=== PATIENT | female | born 1950 | race Caucasian/White ===

== ENCOUNTER 2019-09-08 17:37 | Inpatient (IN) | payer OTHER ==
[~2019-09-08] VITALS: Ht 172.7 cm; Wt 77.6 kg
[~2019-09-08 17:37] MED LIST: ALPR0.5T PO; APIX5TAB PO; ASPI-1153 PO; BIOT10006 PO; CARB15DR4 OP; ESCI20TA PO; FOLI400T4 PO; FURO-149 PO; HYD10 PO; LEVO500T20 PO; LEVO75TA7 PO; LIP10 PO; LORA10TA7 PO; MESA500C PO; PRO40 PO; ROBAC PO; SOTA80TA PO; VALA500T PO; VITD2000 PO
--- NOTE | 2019-09-08 18:00 | NUR ---
Placed in room 06 . Placed on monkey keeper, blood pressure machine and pulse oximeter. To gown for exam. Side rails up. Report given to Jean MCLAIN.
[2019-09-08 18:09] VITALS: BP_SYST 145
[2019-09-08] MEDS ORDERED: GABA-531 PO (18:21)
[2019-09-08] MEDS ORDERED: RABE20TA28 PO (18:21)
--- NOTE | 2019-09-08 18:21 | NUR ---
Medication reconciliation completed with information provided by pt. Any prior medication reconciliation on file was reviewed and corrected.
--- NOTE | 2019-09-08 18:22 | NUR ---
Patient is awake, alert, and oriented x4. Patient reports that she ate tuna tare tare yesterday. Today she started having abdominal pain with nausea and vomiting.
--- NOTE | 2019-09-08 18:25 | NUR ---
ER Dr. Esparza at bedside examining patient.
[2019-09-08] MEDS ORDERED: ONDANSETRON HCL 4 MG/2 ML VIAL IVP ONE ×2 (18:30→21:30)
[2019-09-08] MEDS ORDERED: MORPHINE 4 MG/ML INJ. SYRINGE IVP ONE ×2 (18:30→21:45)
[2019-09-08] MEDS ORDERED: NACL 0.9% 1,000 ML IV ONE (18:30)
--- NOTE | 2019-09-08 19:10 | NUR ---
Received report RAYNE Pena to endorse all care. Will continue to monitor.
[2019-09-08 19:11] LABS: BASOPHILS % (AUTO) 0.4 % (0.0-2.0); EOSINOPHILS # (AUTO) 0.1 K/uL (0.0-0.4); EOSINOPHILS % (AUTO) 1.5 % (0.0-4.0); HEMATOCRIT 42.7 % (36-48); HEMOGLOBIN 14.1 g/dL (12.0-16.0); LYMPHOCYTES % (AUTO) 11.7 % (20.5-51.5); MEAN CORPUSCULAR HEMOGLOBIN 32 pg (27-31); MEAN CORPUSCULAR HGB CONC 33 % (32-36); MEAN CORPUSCULAR VOLUME 96 fL (79.0-98.0); MONOCYTES # (AUTO) 0.4 K/uL (0.0-1.0); MONOCYTES % (AUTO) 5.3 % (1.7-9.3); NEUTROPHILS # (AUTO) 6.9 K/uL (1.8-7.7); NEUTROPHILS % (AUTO) 81.1 % (40.0-70.0); PLATELET COUNT (AUTO) 206 K/uL (130-430); RED BLOOD CELL COUNT(AUTO) 4.44 MIL/uL (4.2-6.2); RED CELL DISTRIBUTION WIDTH 13.5 % (9.0-15.0); WHITE BLOOD COUNT (AUTO) 8.5 K/uL (4.8-10.8)
[2019-09-08 19:19] LABS: CALCIUM 9.3 mg/dL (8.4-11.0); CREATININE 0.93 mg/dL (0.55-1.30); POTASSIUM 3.5 mmol/L (3.5-5.1)
[2019-09-08 19:23] LABS: ALBUMIN 3.8 g/dL (3.4-4.8); TOTAL BILIRUBIN 0.5 mg/dL (0.0-1.0)
--- NOTE | 2019-09-08 20:46 | NUR ---
ER Dr. Eaton at bedside examining patient.
[2019-09-08] MEDS ORDERED: KETAMINE 30 MG/3 ML SYRINGE IVP ONE (21:00)
--- NOTE | 2019-09-08 21:35 | NUR ---
Medicated pt per MD orders. Pt tolerated well. Will continue to monitor.
[2019-09-08] MEDS ORDERED: KCL 20 mEq in D5/0.45NS 1000mL 1,000 ML IV ONE ×2 (22:45→23:23)
[2019-09-08] MEDS ORDERED: FAMOTIDINE PF 20 MG/2 ML VIAL IVP ONE (22:45)
--- NOTE | 2019-09-08 22:51 | NUR ---
Patient will be admitted to [facility]. Admitted to Medical Surgical unit. Will go to room 109C. Belongings list completed. Complete and up to date summary report printed. SBAR report to be given at bedside with opportunity for questions.
--- NOTE | 2019-09-08 23:02 | NUR ---
ADMIT NOTE Received pt from ER to the floor with a diagnosis of intractable abdominal pain. Admission process initiated. patient oriented to pain management, safety and call light-teach back done.
[2019-09-08 23:08] VITALS: BP_SYST 123
[2019-09-08] MEDS ORDERED: HYDROmorphone 1 MG INJ. 1 MG/ML AMPUL IVP PRN (23:30)
[2019-09-08] MEDS ORDERED: ONDANSETRON HCL 4 MG/2 ML VIAL IVP PRN (23:30)
--- NOTE | 2019-09-08 23:30 | NUR ---
DR. SEYMOUR ROUNDS DR. SEYMOUR IS AT BEDSIDE SPEAKING TO THE PATIENT AT THIS TIME.
[2019-09-09] MEDS ORDERED: PANTOPRAZOLE SODIUM 40 MG/VIAL (PROTONIX) IVP SCH
[2019-09-09] MEDS ORDERED: ESCITALOPRAM OXALATE 10 MG TABLET PO ONE (00:16)
[2019-09-09] MEDS ORDERED: GABAPENTIN 300 MG CAPSULE PO SCH (01:00)
[2019-09-09] MEDS ORDERED: HYDROCORTISONE 10 MG TABLET (CORTEF) PO SCH (01:00)
[2019-09-09] MEDS ORDERED: CITALOPRAM HYDROBROMIDE 20 MG TABLET PO SCH (01:00)
[2019-09-09] MEDS ORDERED: ATORVASTATIN 10 MG TABLET PO SCH (01:00)
[2019-09-09] MEDS ORDERED: SOTALOL HCL 80 MG TABLET PO SCH (01:00)
--- NOTE | 2019-09-09 01:30 | NUR ---
INITIAL NOTE AT INITIAL ASSESSMENT, PATIENT IS RESTING IN BED, STABLE, NO SIGNS OF RESPIRATORY DISTRESS. HER FRIEND IS AT BEDSIDE. PATIENT VERBALIZES NO PAIN. PLAN OF CARE FOR THE EVENING IS COMMUNICATED WITH THE PATIENT AND HER FRIEND. PATIENT DEMONSTRATES CORRECT USAGE OF CALL LIGHT USAGE AT THIS TIME. BED IS LOCKED, ALARMED, AND THE LOWEST LEVEL. FALL, SAFETY, RESPIRATORY, AND ASPIRATION PRECAUTIONS WILL BE TAKEN THROUGHOUT THE SHIFT.
--- NOTE | 2019-09-09 02:10 | NUR ---
NOTE PATIENT IS SLEEPING, STABLE, NO SIGNS OF RESPIRATORY DISTRESS. CALL LIGHT IS WITHIN REACH. BED IS LOCKED, ALARMED AT AT THE LOWEST LEVEL.
--- NOTE | 2019-09-09 02:22 | NUR ---
CONSULTATION PAGED/CALLED Reason for Consultation: ABD PAIN Person Who was Notified: DENISSE Consulting Physician: CHARLIE CERVANTES RETAIL EVENT ASSISTANT School Community Relations Coordinator Specialty: Ordering Physician: DAWN
--- NOTE | 2019-09-09 04:10 | NUR ---
NOTE PATIENT IS SLEEPING, STABLE, NO SIGNS OF RESPIRATORY DISTRESS. CALL LIGHT IS WITHIN REACH. BED IS LOCKED, ALARMED AT AT THE LOWEST LEVEL.
--- NOTE | 2019-09-09 06:10 | NUR ---
MED PASS/ CLOSING NOTE PATIENT IS REQUESTING TO TAKE HER SCHEDULED SYNTHROID LATER IN AM LIKE HER HOME SCHEDULE, WILL ENDORSE TO AM NURSE. PATIENT SLEPT WELL THROUGHOUT THE NIGHT. AT THIS TIME, PATIENT IS RESTING IN BED, STABLE, NO SIGNS OF RESPIRATORY DISTRESS. CALL LIGHT IS WITHIN REACH. BED IS LOCKED, ALARMED, AND AT THE LOWEST LEVEL. FALL, SAFETY, RESPIRATORY, AND ASPIRATION PRECAUTIONS HAVE BEEN IN PLACE THROUGHOUT THE NIGHT. WILL CONTINUE TO MONITOR UNTIL SHIFT REPORT IS GIVEN AT BEDSIDE TO AM NURSE.
[2019-09-09 08:00] VITALS: BP_SYST 112
--- NOTE | 2019-09-09 08:00 | NUR ---
RN NOTE REPORT WAS RECEIVED FROM PHYSICIAN NON INVASIVE CARDIOLOGIST, PATIENT WAS ASSESSED , VITAL SIGNS ARE STABLE. PATIENT IS ALERT ORIENTED X4, DENIES PAIN OR DISCOMFORT. CALL LIGHT WITHIN REACH, BED AT LOW POSITION, WILL PASS HIS MED AT 0900 WILL CONTINUE TO MONITOR.
[2019-09-09] MEDS ORDERED: ACETAMINOPHEN 325 MG TABLET PO PRN (09:45)
--- NOTE | 2019-09-09 10:00 | NUR ---
RN NOTE PATIENT IS RESTING IN BED, WAS SERVED HER BREAKFAST AND SEEN BY DR. CERVANTES. PATIENT WILL BE GOING TOMORROW FOR EGD AND COLONOSCOPY. CONSENT WILL BE OBTAINED . PATIENT WAS EDUCATED ABOUT INFECTION CONTROL AND HER DISEASE PROCESS WAS GIVEN HER MEDICATION, STARTED A NEW IV SITE ON THE LEFT FOREARM BY JORGE MONTERO THE CHARGE NURSE, WILL CONTINUE TO MONITOR.
[2019-09-09] MEDS: LORATADINE 10 MG TABLET PO SCH (10:15)
[2019-09-09] MEDS: GABAPENTIN 300 MG CAPSULE PO SCH ×3 (10:16→21:49)
[2019-09-09] MEDS: HYDROCORTISONE 10 MG TABLET (CORTEF) PO SCH ×2 (10:16→21:56)
[2019-09-09] MEDS: LEVOTHYROXINE SODIUM 0.075 MG TABLET PO SCH (10:16)
[2019-09-09] MEDS: SOTALOL HCL 80 MG TABLET PO SCH ×2 (10:17→21:52)
[2019-09-09] MEDS: LEVOFLOXACIN 500 MG TABLET PO SCH (10:17)
[2019-09-09] MEDS: PANTOPRAZOLE SODIUM 40 MG/VIAL (PROTONIX) IVP SCH ×2 (10:18→21:47)
[2019-09-09 12:00] VITALS: BP_SYST 112
--- NOTE | 2019-09-09 12:01 | NUR ---
RN NOTE PATIENT IS ASLEEP. BREATHING REGULARLY, WILL TAKE HER VITAL AND WILL CONTINUE TO MONITOR.
[2019-09-09] MEDS ORDERED: BISACODYL 5 MG TABLET.DR (DULCOLAX) PO ONE (14:00)
--- NOTE | 2019-09-09 14:00 | NUR ---
RN NOTE PATIENT IS RESTING IN BED, HAVING SOME RELATIVES VISITING, DENIES PAIN OR DISCOMFORT. WILL CONTINUE TO MONITOR.
[2019-09-09 16:00] VITALS: BP_SYST 102
--- NOTE | 2019-09-09 16:00 | NUR ---
RN NOTE PATIENT IS RESTING IN BED. SIGNED HER CONSENT FOR HER COLONOSCOPY WELL EGD IN AM BY DR. CERVANTES. PATIENT WILL BE STARTING ON HER MIRALAX SHORTLY IN PREPARATION FOR THE PROCEDURE. PATIENT ALREADY GIVEN HER DULCOLAX TABLETS AND WENT ONCE TO THE BATHROOM FOR A LOOSE BM. WILL CONTINUE TO MONITOR.
[2019-09-09] MEDS: POLYETHYLENE GLYCOL 3350, 17 GM/ POWD.PACK PO SCH ×2 (16:57→20:00)
--- NOTE | 2019-09-09 17:54 | NUR ---
RN NOTE PATIENT IS DRINKING HER MIRALAX AT A GOOD RATE , WAS SERVED HER DINNER CLEAR LIQUID DIET. WILL CONTINUE TO MONITOR AND WILL ENDORSE TO NEXT SHIFT.
--- NOTE | 2019-09-09 19:45 | NUR ---
A/A/O X4.FAMILY @THE BS. DENIES ANY DISCOMFORT @ THIS TIME.V/S STABLE. INSTRUCTED TO USE CALL NEEDED;WITHIN REACH.
[2019-09-09 20:00] VITALS: BP_SYST 119
--- NOTE | 2019-09-09 20:01 | NUR ---
REFUSED MIRALAX @ THIS TIME " STATED SHE BEEN GOING TO USE THE RESTROOM & IT'S BEEN CLEAR. " "PER PT THIS IS NOT HER 1ST TIME ."
[2019-09-09] MEDS: CITALOPRAM HYDROBROMIDE 20 MG TABLET PO SCH (21:48)
[2019-09-09] MEDS: ATORVASTATIN 10 MG TABLET PO SCH (21:48)
[2019-09-09] MEDS ORDERED: methylPREDNISolone SOD SUCC/PF 62.5 MG/ML VIAL IVP SCH (22:30)
--- NOTE | 2019-09-09 22:30 | NUR ---
PT REFUSED SOLUMEDROL IV @ THIS TIME " STATED THAT SHE USUALLY GET THIS PRIOR TO HER PROCEDURE.
--- NOTE | 2019-09-10 | NUR ---
RESTING COMFORTABLY BUT EASILY AROUSABLE.V/S STABLE. INSTRUCTED NPO & VERBALIZED UNDERSTANDING.PITCHER @ BS EMPTIED.CALL LIGHT WITHIN REACH.
[2019-09-10 00:32] VITALS: BP_SYST 114
--- NOTE | 2019-09-10 02:00 | NUR ---
RESTING COMFORTABLY WITH BOTH EYES CLOSED IN NO ACUTE DISTRESS.
--- NOTE | 2019-09-10 04:00 | NUR ---
RESTING COMFORTABLY IN NO ACUTE DISTRESS.
--- NOTE | 2019-09-10 05:15 | NUR ---
TAP WATER ENEMA DONE WITH CLEAR RESULT.
--- NOTE | 2019-09-10 06:38 | NUR ---
ENDORSED RESTING COMFORTABLY IN NO ACUTE DISTRESS.SAFETY MAINTAINED.
[2019-09-10 07:19] LABS: BASOPHILS % (AUTO) 0.6 % (0.0-2.0); EOSINOPHILS # (AUTO) 0.2 K/uL (0.0-0.4); EOSINOPHILS % (AUTO) 3.2 % (0.0-4.0); HEMATOCRIT 43.9 % (36-48); HEMOGLOBIN 14.1 g/dL (12.0-16.0); LYMPHOCYTES # (AUTO) 1.7 K/uL (1.0-5.5); LYMPHOCYTES % (AUTO) 34.5 % (20.5-51.5); MEAN CORPUSCULAR HEMOGLOBIN 31 pg (27-31); MEAN CORPUSCULAR HGB CONC 32 % (32-36); MEAN CORPUSCULAR VOLUME 97 fL (79.0-98.0); MONOCYTES # (AUTO) 0.5 K/uL (0.0-1.0); MONOCYTES % (AUTO) 10.4 % (1.7-9.3); NEUTROPHILS # (AUTO) 2.6 K/uL (1.8-7.7); NEUTROPHILS % (AUTO) 51.3 % (40.0-70.0); PLATELET COUNT (AUTO) 206 K/uL (130-430); RED BLOOD CELL COUNT(AUTO) 4.52 MIL/uL (4.2-6.2); RED CELL DISTRIBUTION WIDTH 14.1 % (9.0-15.0); WHITE BLOOD COUNT (AUTO) 5.1 K/uL (4.8-10.8)
[2019-09-10 07:27] LABS: PROTHROMBIN TIME 10.4 SECS (9.5-12.5)
[2019-09-10] MEDS ORDERED: methylPREDNISolone SOD SUCC/PF 62.5 MG/ML VIAL IVP SCH (07:30)
[2019-09-10 07:50] LABS: ALBUMIN 3.4 g/dL (3.4-4.8); CALCIUM 9.2 mg/dL (8.4-11.0); CREATININE 0.77 mg/dL (0.55-1.30); POTASSIUM 3.9 mmol/L (3.5-5.1); TOTAL BILIRUBIN 0.3 mg/dL (0.0-1.0)
--- NOTE | 2019-09-10 08:00 | NUR ---
RN INITIAL NOTES RECEIVED PATIENT IN BED ALERT AWAKE AND VERBAL, PATIENT IS SCHEDULED FOR EGD AND COLONOSCOPY TODAY, HL INTACT Addendum: 09/10/19 at 0928 by Edwige Amado RN GI LAB STAFF CAME AND STATED EGD/COLONOSCOPY IS MOVED TO LATER TIME , PATIENT EXPLAINED AND SHE IS FRUSTRATED, PATIENT WAS ALREADY GIVEN SOLUMEDROL IV ORDERED AND PATIENT IS AWARE
[2019-09-10] MEDS: LEVOTHYROXINE SODIUM 0.075 MG TABLET PO SCH (08:46)
[2019-09-10] MEDS: PANTOPRAZOLE SODIUM 40 MG/VIAL (PROTONIX) IVP SCH ×2 (08:47→20:41)
[2019-09-10] MEDS: SOTALOL HCL 80 MG TABLET PO SCH ×2 (09:00→20:42)
[2019-09-10] MEDS: LORATADINE 10 MG TABLET PO SCH ×2 (09:00→09:53)
--- NOTE | 2019-09-10 09:22 | NUR ---
PAGED PAGED AT [phone] SPOKE WITH
--- NOTE | 2019-09-10 09:23 | NUR ---
PAGED GI PAGED GI TO VERIFY IF PO AM MEDS COULD BE GIVEN THIS AM D/T EGD/ COLONOSCOPY SCHEDULED THIS PM , PATIENT EXPLAINED THAT WERE WAITING FOR THE DR TO CALL BACK.
[2019-09-10] MEDS: HYDROCORTISONE 10 MG TABLET (CORTEF) PO SCH ×2 (09:53→20:43)
[2019-09-10] MEDS: LEVOFLOXACIN 500 MG TABLET PO SCH (09:53)
[2019-09-10] MEDS: GABAPENTIN 300 MG CAPSULE PO SCH ×3 (09:56→20:43)
--- NOTE | 2019-09-10 10:00 | NUR ---
DR CERVANTES GI RETURN CALL AND INFORMED PATIENT LATE EGD/COLONOSCOPY AND PATIENT CONCERN ABOUT HER AM MEDS PER DR CERVANTES OK TO GIVE THE AM MEDS WITH A SIPS OF WATER , ALSO CLAIFIED NO NEED TO GIVE SOLUMEDROL IVP PRIOR THE EGD/COLONOSCOPY INFORMED PATIENT KEEP NPO AFTER .
[2019-09-10 11:07] VITALS: BP_SYST 133
--- NOTE | 2019-09-10 11:48 | NUR ---
DR DAWN OROURKE RETURNED CALL AND INFORMED ABOUT PATIENT EGD/COLONOSCOPY PROCEDURE MOVED TO PM , INFORMED PATIENT IVF ORDERED X 1 , ORDERED IVF , CALLED PHARMACY AND SPOKE WITH RENETTA TO PROCESS IV ORDERED, HE WILL NOTIFY THE PHARMACIST
[2019-09-10] MEDS: KCL 20 mEq in D5/0.45NS 1000mL 1,000 ML IV SCH (11:57)
--- NOTE | 2019-09-10 14:00 | NUR ---
RETURN FROM GI PATIENT RETURN FROM GI LAB ALERT AWAKE AND VERBAL NO DISTRESS,ATTENDED AND MONITORED IVF RESUMED AND MEDS GIVEN PATIENT WANTS TO SPEAK WITH ROSSY VALENZUELA , INFORMED GI LAB THEY REMINDED Addendum: 09/10/19 at 1751 by Edwige Amado RN ERROR IN TIME
[2019-09-10] MEDS ORDERED: methylPREDNISolone SOD SUCC/PF 62.5 MG/ML VIAL IVP ONE (14:15)
--- NOTE | 2019-09-10 14:29 | NUR ---
PATIENT OFF THE UNIT TO GI LAB VIA WHEELCHAIR, STABLE CONDITION.
[2019-09-10] MEDS ORDERED: MIDAZOLAM HCL 5 MG/5 ML VIAL ONE ×2 (14:30→14:31)
[2019-09-10] MEDS ORDERED: MEPERIDINE HCL/PF 100 MG/ML AMP ONE (14:31)
[2019-09-10] MEDS ORDERED: SIMETHICONE 40 MG/0.6 ML ML ONE (14:31)
[2019-09-10 15:06] VITALS: BP_SYST 132
[2019-09-10] MEDS ORDERED: ONDANSETRON HCL 4 MG/2 ML VIAL ONE (15:35)
[2019-09-10] MEDS ORDERED: fentaNYL CITRATE/PF 100 MCG/2 ML AMP ONE ×2 (15:35→16:02)
--- NOTE | 2019-09-10 16:30 | NUR ---
RETURN FROM GI LAB PATIENT RETURN FROM GI LAB ALERT AWAKE AND VERBAL MEDS NEURONTIN GIVEN LATE , PATIENT WANTS TO SPEAK WITH ROSSY VALENZUELA , GI LAB REMINDED TO TELL ROSSY VALENZUELA TO COME BY THE ROOM
--- NOTE | 2019-09-10 17:30 | NUR ---
DR CERVANTES GI CAME AND SPOKE WITH THE PATIENT DISCUSSED EGD/COLONOSCOPY WITH RX GIVEN PROTONIX, GIVEN TO PATIENT
--- NOTE | 2019-09-10 18:51 | NUR ---
ENDORSEMENT WILL ENDORSE TO NEXT SHIFT CONT CARE PATIENT WAS GIVEN RX OF PO PROTONIX PATIENT AMBULATORY NO PAIN COMPLAINED PATIENT ADVISED BEDREST AND CALL FOR ASSISTANCE PRN WILL CONT PLAN OF CARE AND SAFETY ENSURED PT FULLY UNDERSTAND AND WILL INFORM ATTENDING MD MCKINNON FOR DC PLANNING
[2019-09-10 18:54] VITALS: BP_SYST 113
--- NOTE | 2019-09-10 19:45 | NUR ---
A/A/O X4.DENIES ANY DISCOMFORT @ THIS TIME.AFEBRILE.V/S STABLE.IVF 1/2 NS + 20 MEQ KCL/L @75ML/HR INFUSING WELL. INSTRUCTED TO USE CALL LIGHT NEEDED;WITHIN REACH.
[2019-09-10 20:00] VITALS: BP_SYST 115
[2019-09-10] MEDS ORDERED: MIDAZOLAM HCL 2 MG/2 ML VIAL (VERSED) IVP ONE (20:00)
[2019-09-10] MEDS: CITALOPRAM HYDROBROMIDE 20 MG TABLET PO SCH (20:42)
[2019-09-10] MEDS: ATORVASTATIN 10 MG TABLET PO SCH (20:43)
--- NOTE | 2019-09-10 22:00 | NUR ---
SNACKS GIVEN PER PT'S REQUEST.
--- NOTE | 2019-09-10 23:51 | NUR ---
DILAUDID 0.5MG IV ADM FOR BURNING ABD PAIN SCALE 7/10.WILL CON'T TO MONITOR FOR PAIN.
[2019-09-11] VITALS: BP_SYST 108
--- NOTE | 2019-09-11 00:21 | NUR ---
PER PT ABD PAIN STILL PERSIST BUT DECREASED TO SCALE 2/10.
--- NOTE | 2019-09-11 02:00 | NUR ---
RESTING COMFORTABLY IN NO ACUTE DISTRESS.
[2019-09-11] MEDS: KCL 20 mEq in D5/0.45NS 1000mL 1,000 ML IV SCH (02:48)
--- NOTE | 2019-09-11 04:00 | NUR ---
RESTING COMFORTABLY IN NO ACUTE DISTRESS. IVF INFUSING WELL.
[2019-09-11] MEDS: LEVOTHYROXINE SODIUM 0.075 MG TABLET PO SCH (06:09)
[2019-09-11] MEDS ORDERED: fentaNYL CITRATE/PF 100 MCG/2 ML AMP IVP ONE (06:45)
[2019-09-11] MEDS ORDERED: ONDANSETRON HCL 4 MG/2 ML VIAL IVP ONE (06:45)
[2019-09-11] MEDS ORDERED: SIMETHICONE 80 MG TAB.CHEW PO ONE (06:45)
--- NOTE | 2019-09-11 06:47 | NUR ---
ENDORSED RESTING COMFORTABLY IN NO ACUTE DISTRESS.IVF INFUSING WELL.CALL LIGHT WITHIN REACH.SAFETY MAINTAINED.
[2019-09-11 07:37] LABS: HEMATOCRIT 40.2 % (36-48); HEMOGLOBIN 13.1 g/dL (12.0-16.0); LYMPHOCYTES # (AUTO) 0.9 K/uL (1.0-5.5); LYMPHOCYTES % (AUTO) 7.8 % (20.5-51.5); MEAN CORPUSCULAR HEMOGLOBIN 31 pg (27-31); MEAN CORPUSCULAR HGB CONC 33 % (32-36); MEAN CORPUSCULAR VOLUME 96 fL (79.0-98.0); MONOCYTES # (AUTO) 0.5 K/uL (0.0-1.0); MONOCYTES % (AUTO) 4.8 % (1.7-9.3); NEUTROPHILS # (AUTO) 9.7 K/uL (1.8-7.7); NEUTROPHILS % (AUTO) 87.4 % (40.0-70.0); PLATELET COUNT (AUTO) 225 K/uL (130-430); RED CELL DISTRIBUTION WIDTH 13.4 % (9.0-15.0); WHITE BLOOD COUNT (AUTO) 11.1 K/uL (4.8-10.8)
[2019-09-11 08:00] VITALS: BP_SYST 113
--- NOTE | 2019-09-11 08:00 | NUR ---
RN INITIAL NOTES RECEIVED PATIENT IN BED ALERT AWQKE NO DISTRESS , RESP EVEN AND UNLABORED
[2019-09-11 08:07] LABS: ALBUMIN 3.2 g/dL (3.4-4.8); CALCIUM 9.1 mg/dL (8.4-11.0); CREATININE 0.77 mg/dL (0.55-1.30); TOTAL BILIRUBIN 0.2 mg/dL (0.0-1.0)
[2019-09-11] MEDS: LORATADINE 10 MG TABLET PO SCH (08:37)
[2019-09-11] MEDS: GABAPENTIN 300 MG CAPSULE PO SCH (08:37)
[2019-09-11] MEDS: LEVOFLOXACIN 500 MG TABLET PO SCH (08:37)
[2019-09-11] MEDS: PANTOPRAZOLE SODIUM 40 MG/VIAL (PROTONIX) IVP SCH (08:37)
[2019-09-11] MEDS: HYDROCORTISONE 10 MG TABLET (CORTEF) PO SCH (08:38)
[2019-09-11] MEDS: SOTALOL HCL 80 MG TABLET PO SCH (08:39)
--- NOTE | 2019-09-11 10:00 | NUR ---
ROUNDS TOLERATED ALL MEDS AND NO COMPLAIN OF PAIN
[2019-09-11 12:00] VITALS: BP_SYST 102; BP_SYST 122
--- NOTE | 2019-09-11 12:00 | NUR ---
ROUNDS PATIENT WANTED TO GO HOME PAGED AND INFORMED PATIENT DC DESIRE, MD SAID ITS OK TO DC HOME CONT HOME MEDS AND CLEAR WITH ROSSY VALENZUELA . FOR MEDS AND ELIQUIZ PO MEDS , NO NEED OF PO ATB , INFORMED PATIENT , WILL PAGE ROSSY VALENZUELA FOR THE ELIQUIS, VERIFICATION
[2019-09-11 12:04] VITALS: BP_SYST 113
--- NOTE | 2019-09-11 12:40 | NUR ---
RN INITIAL NOTES RECEIVED PATIENT IN BED ALERT AWAKE AND VERBALLY RESPONSIVE , IVF INFUSING ORDERED , RESP EVEN AND UNLABORED PATIENT IS ANXIOUS TO GO HOME , AWAITING FOR MD TO COME SEE HER Addendum: 09/11/19 at 1245 by Edwige Amado RN ERROR TIME
--- NOTE | 2019-09-11 12:46 | NUR ---
PAGED ROSSY VALENZUELA FOR THE MANPREET ZUNIGA MD TO VERIFY FOR THE RAFA
--- NOTE | 2019-09-11 13:30 | NUR ---
DR HELEN BLAIR DR RETURNED CALL AND VERIFIED TO RESUME PATIENT ELIQUIZ PREVIOUSLY ORDERED , PER MD HE GAVE PROTONIX RX TO PATIENT TO REPLACE PREVIOUS GERD MEDS PATIENT HAD BEFORE AND OK TO DC HOME
--- NOTE | 2019-09-11 13:50 | NUR ---
D/C Patient Patient given medication reconciliation form and D/C instructions. Exit Care provided. Patient verbalized understanding. MD discussed with patient the results and treatment provided. Ambulatory with steady gait for discharge to home. Patient in stable condition, ID band removed. IV catheter removed, intact and dressing applied, no active bleeding. Rx of Protonix po given by GI dr . Patient educated on pain management and follow up with pcp within a week . All belongings sent with patient.
--- NOTE | 2019-09-13 15:59 | NUR ---
Discharge Follow Up Phone Call Phoned patient, . Patient stated she was not doing well. She is having pain and diarrhea and is still staying with her friend in [place]. She has contacted her GI in [place] who recommended the capsule endoscopy. Patient is waiting to hear back from Dr Avery's office about an earlier appointment than her prior scheduled for 09/17/19. Patient asked that if she needed to go to the ED, do we do the procedure at this hospital. Phoned Dr Avery [phone]. They are checking on the patient's request and working to get medical records. The procedure is only done in their office, not in any local hospital. The office will follow up with patient. Notified patient of above. 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 She is working to get that filled ana. Discussed looking at other options to reduce costs, but patient has done all that. She filled the Rx for protonix and is taking as directed.
== END 2019-09-11 14:15 | disposition home or self-care (01) | DRG 394 ==
LOC: SED 17:37 → SMU 22:44
PROVIDERS: ADMIT Family Medicine; ATTEND Family Medicine
PROC: 0DB68ZZ Excision of Stomach, Via Natural or Artificial Opening Endoscopic (ICD-10-PCS; 2019-09-10)
PROC: 0DBE8ZX Excision of Large Intestine, Via Natural or Artificial Opening Endoscopic, Diagnostic (ICD-10-PCS; 2019-09-10)
PROC: 0DB98ZX Excision of Duodenum, Via Natural or Artificial Opening Endoscopic, Diagnostic (ICD-10-PCS; principal; 2019-09-10 08:00)
PROC: 0DB68ZX Excision of Stomach, Via Natural or Artificial Opening Endoscopic, Diagnostic (ICD-10-PCS; 2019-09-10 08:00)
DX: K31.7 Polyp of stomach and duodenum (principal); K50.90 Crohn's disease, unspecified, without complications; E27.1 Primary adrenocortical insufficiency; K29.70 Gastritis, unspecified, without bleeding; K21.9 Gastro-esophageal reflux disease without esophagitis; E06.3 Autoimmune thyroiditis; I48.91 Unspecified atrial fibrillation; K57.30 Diverticulosis of large intestine without perforation or abscess without bleeding; K64.8 Other hemorrhoids; Z96.659 Presence of unspecified artificial knee joint; Z80.42 Family history of malignant neoplasm of prostate; Z85.038 Personal history of other malignant neoplasm of large intestine; Z86.73 Personal history of transient ischemic attack (TIA), and cerebral infarction without residual deficits; Z87.11 Personal history of peptic ulcer disease; Z98.1 Arthrodesis status; Z88.2 Allergy status to sulfonamides; Z79.2 Long term (current) use of antibiotics; Z79.899 Other long term (current) drug therapy; Z90.49 Acquired absence of other specified parts of digestive tract
CPT/HCPCS: 36415; 43239; 45380; 80053; 83605; 83690-TC; 85025; 85610-TC; 87040-TC; 87081; 88305; 88312; 88313; 93005; 96361; 96374; 96375; 96376; 99285; C9113; J1170; J2175; J2250; J2270; J2405; J2930; J3010; J3465; J3490; J7030